=== PATIENT | male | born 1960 | race Caucasian/White ===

== ENCOUNTER 2022-05-20 13:24 | Outpatient (CLI) | payer OTHER, SELFPAY | END 2022-05-20 13:25 | disposition home or self-care (01) | LOC: OP CLINIC 13:26 | PROVIDERS: PCP Student in an Organized Health Care Education/Training Program; Visit Provider Internal Medicine Gastroenterology | DX: Z12.11 Encounter for screening for malignant neoplasm of colon (principal); K63.5 Polyp of colon | CPT/HCPCS: 45385; 88305; 99153; J2250; J3010 ==

== ENCOUNTER 2022-07-24 01:21 | Emergency (ER) | payer OTHER, SELFPAY ==
[2022-07-24 01:45] VITALS: BP 145/89; PULSE 98; RESP 16; TEMP 36.2; O2SAT 95; O2SAT 98
[2022-07-24] MEDS: LACTATED RINGERS 1000 ML 1,000 ML 500 ML IV (02:27)
--- NOTE | 2022-07-24 02:29 | ED_ITS ---
HPI - General Adult General Date Seen: 07/24/22 Chief complaint: Unspecified Complaint, Adult Stated complaint: Dry throat,rapid heartrate Time Seen by Provider: 07/24/22 01:38 Source: patient and family Mode of arrival: ambulatory Limitations: altered mental status History of Present Illness HPI narrative: 62-year-old male who took it Delta nine gummy tonight to help him with his sleep. He ate a small piece and waited about 30 minutes. When he did not feel any affect he ate another one. I estimate that he ingested about 200 mg as each gummy contains 175 mg. Now he feels numbness and tingling all over and has a very dry mouth. He feels that his heart is racing but it is only going about 90. He tells me that his resting heart rate is normally in the 60s. No chest pains or shortness of breath. Related Data Allergies Allergy/AdvReac Type Severity Reaction Status Date / Time iodine Allergy Verified 05/20/22 15:08 Penicillins Allergy Verified 05/20/22 15:08 Review of Systems Narrative: Review of systems is outlined above otherwise noted to be negative. He just happened to see his cis coordinator earlier today. [facility] Social History Smoking Status: Never smoker Do you use any of these nicotine containing products: None How often do you have a drink containing alcohol: never AUDIT-C Alcohol total score: 0 Non-prescribed substance use: marijuana (any form) Exam Narrative: Exam Narrative: Vitals noted. Patient is awake and alert but obviously very high. He has a dry mouth. No hallucinations. He is cooperative. HEENT: Conjunctiva clear. Tympanic membranes are pearly white bilaterally. Posterior pharynx is clear without erythema or exudate. Neck is supple without adenopathy, thyromegaly, carotid bruit. Lungs: Clear to auscultation in all mai. No wheezes, rales, rhonchi. Heart: Regular rate and rhythm with a grade 2/6 systolic murmur. Abdomen: Soft and nontender. No guarding, rigidity, rebound. Bowel sounds are normal. No palpable masses. Extremities: No cyanosis or edema. Good distal pulses. Skin: No abnormalities noted of the exposed skin. Neurologic: Awake, alert, fully oriented. Neurologic exam is nonfocal. Const: Vital Signs, click to edit/add: Vital Signs - 24 hr 07/24/22 01:45 07/24/22 01:45 07/24/22 03:45 Temperature 97.1 F L Pulse Rate [Left P ulse Oximeter] 98 81 Respiratory Rate 16 14 Respiratory Rate [ Medial Throat] 16 Blood Pressure [Ri ght Upper Arm] 145/89 H 145/89 H Pulse Oximetry 98 98 Oxygen Delivery Me thod Room Air Room Air Course Course Hospital Course: Patient was seen and examined. He is stable but is obviously very high. IV is established he is given 1 L of lactated Ringer's. CBC and BMP are normal. EKG shows normal sinus rhythm with a rate of 92. No acute ST or T-wave changes are noted. We spoke with poison Control who suggested monitoring for 4 hours post ingestion in benzos if needed for agitation. Patient was not given any medication and was able to sleep. He is then discharged home in the care of his . Vital Signs Vital signs: Initial Vital Signs Temperature 97.1 F L 07/24/22 01:45 Temperature Source Temporal Artery Scan 07/24/22 01:45 Pulse Rate 98 07/24/22 01:45 Pulse Rhythm 07/24/22 01:45 Respiratory Rate 16 07/24/22 01:45 Blood Pressure 145/89 H 07/24/22 01:45 Blood Pressure Mean 107 07/24/22 01:45 Blood Pressure Position Semi-Fowlers 07/24/22 01:45 Pulse Oximetry 98 07/24/22 01:45 Oxygen Delivery Method 07/24/22 01:45 Vital Signs Temperature 97.1 F L 07/24/22 01:45 Pulse Rate 98 07/24/22 01:45 Respiratory Rate 16 07/24/22 01:45 Blood Pressure 145/89 H 07/24/22 01:45 Pulse Oximetry 98 07/24/22 01:45 Oxygen Delivery Method 07/24/22 01:45 Temperature 97.1 F L 07/24/22 01:45 Pulse Rate 81 07/24/22 03:45 Respiratory Rate 14 07/24/22 03:45 Blood Pressure 145/89 H 07/24/22 03:45 Pulse Oximetry 98 07/24/22 03:45 Oxygen Delivery Method 07/24/22 03:45 Medical Decision Making Lab Data Labs: Lab Results 07/24/22 07/24/22 Range/Units 02:20 02:20 WBC 8.77 (4.50-11.00) K/uL RBC 4.69 (4.30-5.90) m/uL Hgb 13.8 (13.5-17.5) gm/dL Hct 40.0 (37.0-53.0) % MCV 85 (80-100) fL MCH 29 (26-34) pg MCHC 35 (32-36) gm/dL RDW Coeff of [place] 12.4 (11.5-15.5) % Plt Count 269 (140-440) K/uL Neut % (Auto) 60.9 (42.0-72.0) % Lymph % (Auto) 31.7 (20-44) % [place] % (Auto) 5.8 (0.0-11.0) % Eos % (Auto) 1.3 (0.0-7.0) % Baso % (Auto) 0.2 (0.0-3.0) % Neut # (Auto) 5.34 (1.7-7.0) K/uL Lymph # (Auto) 2.78 (0.90-2.90) K/uL [place] # (Auto) 0.50 (0.00-0.90) K/UL Eos # (Auto) 0.11 (0.00-0.50) K/uL Baso # (Auto) 0.02 (0.00-0.30) K/uL Sodium 141 (135-149) mmol/L Potassium 3.7 (3.6-5.1) mmol/L Chloride 105 (96-114) mmol/L Carbon Dioxide 27 (20-32) mmol/L BUN 23 (7-30) mg/dL Creatinine 0.8 (0.5-1.5) mg/dL Estimated GFR 101 ml/min Glucose 165 H (60-115) mg/dL Calcium 9.6 (8.4-10.6) mg/dL Discharge Plan Discharge Clinical Impression: Accidental cannabis overdose Patient Disposition: Home w/ Parent or Adult Condition: Improved Additional Instructions: Be cautious with THC ingestion. 5-10 mg is a more standard dose. Better yet, avoid completely. Stay hydrated. Continue all current meds. Follow Up/Referrals: CHERY GIRALDO DO [Primary Care Provider] - Stand Alone Forms: [employer] Info Instructions
[2022-07-24 02:34] LABS: Basophils Absolute Auto 0.02 K/uL (0.00-0.30); Basophils Percent Auto 0.2 % (0.0-3.0); Eosinophils Absolute Auto 0.11 K/uL (0.00-0.50); Eosinophils Percent Auto 1.3 % (0.0-7.0); Hemoglobin* 13.8 gm/dL (13.5-17.5); Immature Granulocytes Abs Auto 0.01 K/uL (0.00-0.30); Immature Granulocytes Pct Auto 0.1 %; Lymphocytes Absolute Auto 2.78 K/uL (0.90-2.90); Lymphocytes Percent Auto 31.7 % (20-44); Mean Corpuscular HGB Conc 35 gm/dL (32-36); Mean Corpuscular Hemoglobin 29 pg (26-34); Mean Corpuscular Volume 85 fL (80-100); Monocytes Percent Auto 5.8 % (0.0-11.0); Neutrophils Absolute Auto 5.34 K/uL (1.7-7.0); Neutrophils Percent Auto 60.9 % (42.0-72.0); Platelet Count* 269 K/uL (140-440); RDW Coefficient of Variation % 12.4 % (11.5-15.5); Red Blood Count 4.69 m/uL (4.30-5.90); White Blood Count* 8.77 K/uL (4.50-11.00)
[2022-07-24 02:35] LABS: Slide Review Reflex No
[2022-07-24 02:45] LABS: Chloride* 105 mmol/L (96-114)
[2022-07-24 02:46] LABS: Potassium* 3.7 mmol/L (3.6-5.1); Sodium* 141 mmol/L (135-149)
[2022-07-24 02:48] LABS: Creatinine* 0.8 mg/dL (0.5-1.5); Estimated Glomerular Filt Rate 101 ml/min
[2022-07-24 02:49] LABS: Blood Urea Nitrogen* 23 mg/dL (7-30); Calcium* 9.6 mg/dL (8.4-10.6); Carbon Dioxide* 27 mmol/L (20-32); Glucose* 165 mg/dL (60-115)
[2022-07-24 03:45] VITALS: BP 145/89; PULSE 81; RESP 14; O2SAT 98
== END 2022-07-24 05:03 | disposition home or self-care (01) ==
PROVIDERS: Emergency Provider Family Medicine; PCP Student in an Organized Health Care Education/Training Program
DX: T40.711A Poisoning by cannabis, accidental (unintentional), initial encounter (principal)
CPT/HCPCS: 36415; 80048; 80306; 85025; 99283; J7120